=== PATIENT | female | born 1970 | race Caucasian/White ===

== ENCOUNTER 2021-03-03 05:25 | Emergency (ER) | payer OTHER ==
[2021-03-03 06:03] VITALS: BP 111/56; PULSE 67; TEMP 97.8; BMI 30.2
[2021-03-03] MEDS ORDERED: KETOROLAC TROMETHAMINE 30 MG/1 ML VIAL IVPUSH ONE (07:27)
[2021-03-03] MEDS ORDERED: KETOROLAC TROMETHAMINE 30 MG/1 ML VIAL ONE (08:02)
[2021-03-03 08:34] LABS: BASO % 0.6 % (0-2.0); EOS % 6.2 % (0-4.5); HEMATOCRIT 26.8 % (32.4-45.2); HEMOGLOBIN 8.2 GM/dL (10.7-15.3); LYMPH % 26.4 % (8-40); MCHC 30.7 g/dl (32.0-36.0); MEAN CELL VOLUME 59.2 fl (80-96); MEAN PLT VOLUME 8.4 fl (7.5-11.1); MONO % 13.1 % (3.8-10.2); NEUT % 53.7 % (42.8-82.8); PLATELET COUNT 180 10^3/uL (134-434); RBC 4.53 M/mm3 (3.60-5.2); RDW 19.5 % (11.6-15.6); WHITE BLOOD COUNT 4.6 K/mm3 (4.0-10.0)
[2021-03-03 08:36] LABS: MCH 18.2 pg (25.7-33.7)
[2021-03-03 08:53] LABS: EPI CELLS 7 /uL (0-25.1); HYALINE CASTS 4 /uL (0-3.1); URINE APPEARANCE CLOUDY; URINE BACTERIA >9,000 /uL (0-1359); URINE BILIRUBIN NEGATIVE (NEGATIVE); URINE COLOR YELLOW; URINE GLUCOSE (UA) NEGATIVE (NEGATIVE); URINE KETONE NEGATIVE (NEGATIVE); URINE LEUK ESTERASE 2+ (NEGATIVE); URINE NITRITE POSITIVE (NEGATIVE); URINE PROTEIN TRACE (NEGATIVE); URINE RBC 2134 /uL (0-23.9); URINE WBC 210 /uL (0-25.8)
[2021-03-03 08:54] LABS: HCG,QUALITATIVE URINE Negative
[2021-03-03 08:54] LABS: BLOOD UREA NITROGEN 8.5 mg/dL (7-18); CALCIUM 8.4 mg/dL (8.5-10.1)
[2021-03-03 08:55] LABS: ALBUMIN 3.8 g/dl (3.4-5.0)
[2021-03-03 08:58] LABS: CREATININE 0.6 mg/dL (0.55-1.3)
[2021-03-03 08:59] LABS: BILIRUBIN,TOTAL 0.6 mg/dL (0.2-1)
== END 2021-03-03 09:50 | disposition home or self-care (01) ==
LOC: JER 05:25
PROC: 3E0333Z Introduction of Anti-inflammatory into Peripheral Vein, Percutaneous Approach (ICD-10-PCS; principal; 2021-03-03)
DX: N30.01 Acute cystitis with hematuria (principal)
CPT/HCPCS: 36415; 74176-TC; 80053; 81003; 84703; 85025; 87086; 87186; 99284-25

== ENCOUNTER 2023-01-31 23:24 | Inpatient (IN) | payer OTHER ==
[2023-01-31 23:31] VITALS: BMI 33.0
[2023-02-01] MEDS ORDERED: METOCLOPRAMIDE HCL INJECTION 10 MG/2 ML VIAL IVPB ONE (00:06)
[2023-02-01] MEDS ORDERED: SODIUM CHLORIDE 0.9% 500 ML INFUS.BAG IV ONE (00:07)
[2023-02-01 00:31] LABS: HEMATOCRIT 38.7 % (32.4-45.2); MCH 28.2 pg (25.7-33.7); MCHC 33.7 g/dl (32.0-36.0); MEAN CELL VOLUME 83.7 fl (80-96); MEAN PLT VOLUME 8.3 fl (7.5-11.1); PLATELET COUNT 96 10^3/uL (134-434); RBC 4.62 M/mm3 (3.60-5.2); RDW 14.5 % (11.6-15.6); WHITE BLOOD COUNT 5.2 K/mm3 (4.0-10.0)
[2023-02-01 00:42] LABS: INR 1.05 (0.83-1.09); PROTHROMBIN TIME (PATIENT) 12.2 SEC (9.7-13.0)
[2023-02-01 00:44] LABS: ACTIVATED PTT 25.7 SECONDS (25.2-36.5)
[2023-02-01] MEDS ORDERED: METOCLOPRAMIDE HCL INJECTION 10 MG/2 ML VIAL ONE (00:46)
[2023-02-01 00:51] LABS: POTASSIUM 3.6 mmol/L (3.5-5.1)
[2023-02-01 00:53] LABS: ALBUMIN 3.5 g/dl (3.4-5.0); BLOOD UREA NITROGEN 16.8 mg/dL (7-18); CALCIUM 8.4 mg/dL (8.5-10.1)
[2023-02-01 00:56] LABS: CREATININE 0.7 mg/dL (0.55-1.3)
[2023-02-01 00:58] LABS: TOT PROT 6.8 g/dl (6.4-8.2)
[2023-02-01 01:14] LABS: ANISOCYTOSIS 2+; MACROCYTOSIS 0; OVALOCYTE 1+
[2023-02-01] MEDS ORDERED: ACETAMINOPHEN 1000 MG/100 ML BAG IVPB ONE (01:27)
[2023-02-01] MEDS ORDERED: PIPERACILLIN/TAZOB 4.5 GM 4.5 GM in DEXTROSE 5%-WATER 100 ML IVPB ONE (01:42)
[2023-02-01] MEDS ORDERED: ERYTHROMYCIN 0.5% OPHTHALMIC OINTMENT 3.5 GM TUBE OU STA (01:43)
[2023-02-01] MEDS ORDERED: PIPERACILLIN/TAZOB 4.5 GM 4.5 GM/100 ML BAG IVPB ONE (03:09)
[2023-02-01] MEDS ORDERED: ERYTHROMYCIN 0.5% OPHTHALMIC OINTMENT 3.5 GM TUBE ONE (03:09)
[2023-02-01 03:50] LABS: URINE APPEARANCE CLEAR; URINE COLOR YELLOW
[2023-02-01 03:51] LABS: URINE BILIRUBIN NEGATIVE (NEGATIVE); URINE GLUCOSE (UA) NEGATIVE (NEGATIVE); URINE KETONE TRACE (NEGATIVE); URINE LEUK ESTERASE 1+ (NEGATIVE); URINE NITRITE POSITIVE (NEGATIVE); URINE PROTEIN NEGATIVE (NEGATIVE)
[2023-02-01 03:52] LABS: EPI CELLS 7.4 /uL (0-25.1); HYALINE CASTS 0.43 /uL (0-3.1); URINE BACTERIA 21942.4 /uL (0-1359); URINE RBC 16.3 /uL (0-23.9); URINE WBC 223.4 /uL (0-25.8)
[2023-02-01 04:42] LABS: HEMATOCRIT 37.3 % (32.4-45.2); HEMOGLOBIN 12.7 GM/dL (10.7-15.3); MCH 28.4 pg (25.7-33.7); MCHC 34.1 g/dl (32.0-36.0); MEAN CELL VOLUME 83.2 fl (80-96); MEAN PLT VOLUME 8.3 fl (7.5-11.1); PLATELET COUNT 92 10^3/uL (134-434); RBC 4.48 M/mm3 (3.60-5.2); RDW 14.7 % (11.6-15.6); WHITE BLOOD COUNT 7.5 K/mm3 (4.0-10.0)
[2023-02-01 05:01] LABS: POTASSIUM 3.3 mmol/L (3.5-5.1)
[2023-02-01 05:04] LABS: ALBUMIN 3.3 g/dl (3.4-5.0); BLOOD UREA NITROGEN 10.7 mg/dL (7-18); MAGNESIUM 1.9 mg/dL (1.8-2.4)
[2023-02-01 05:07] LABS: CREATININE 0.6 mg/dL (0.55-1.3); PHOSPHOROUS 2.9 mg/dL (2.5-4.9)
[2023-02-01 05:08] LABS: BILIRUBIN,TOTAL 1.3 mg/dL (0.2-1); TOT PROT 6.4 g/dl (6.4-8.2)
[2023-02-01] MEDS: SODIUM CHLORIDE 1,000 ML IV SCH ×3 (05:25→23:26)
[2023-02-01 05:40] LABS: HIV INTERPRETATION NEGATIVE (NEGATIVE)
[2023-02-01] MEDS ORDERED: AMPICILLIN NA/SULBACTAM NA 3 GM in SODIUM CHLORIDE 100 ML IVPB SCH (09:00)
[2023-02-01] MEDS ORDERED: POTASSIUM CHLORIDE TABS 20 MEQ TABLET.ER (FP) PO ONE (10:00)
[2023-02-01] MEDS ORDERED: DOXYCYCLINE INJECTION 100 MG in DEXTROSE 5%-WATER 100 ML IVPB SCH ×2 (10:00)
[2023-02-01] MEDS: ERYTHROMYCIN 0.5% OPHTHALMIC OINTMENT 3.5 GM TUBE OD SCH ×4 (12:28→21:46)
[2023-02-01] MEDS: ONDANSETRON 4 MG/2 ML VIAL IVPUSH PRN (12:36)
[2023-02-01] MEDS: PIPERACILLIN/TAZOB 4.5 GM 4.5 GM in DEXTROSE 5%-WATER 100 ML IVPB SCH ×2 (12:37→18:09)
[2023-02-01] MEDS ORDERED: morphine SULFATE 4 MG/ML VIAL IVPUSH PRN (12:51)
[2023-02-02] MEDS: PIPERACILLIN/TAZOB 4.5 GM 4.5 GM in DEXTROSE 5%-WATER 100 ML IVPB SCH ×3 (01:20→17:29)
[2023-02-02] MEDS: SODIUM CHLORIDE 1,000 ML IV SCH (08:02)
[2023-02-02 10:09] LABS: BASO % 0.4 % (0-2.0); EOS % 2.1 % (0-4.5); HEMATOCRIT 36.4 % (32.4-45.2); LYMPH % 11.3 % (8-40); MCH 28.2 pg (25.7-33.7); MCHC 33.1 g/dl (32.0-36.0); MEAN CELL VOLUME 85.4 fl (80-96); MEAN PLT VOLUME 9.3 fl (7.5-11.1); MONO % 8.5 % (3.8-10.2); NEUT % 77.7 % (42.8-82.8); PLATELET COUNT 91 10^3/uL (134-434); RBC 4.27 M/mm3 (3.60-5.2); RDW 14.7 % (11.6-15.6); WHITE BLOOD COUNT 9.7 K/mm3 (4.0-10.0)
[2023-02-02] MEDS: ERYTHROMYCIN 0.5% OPHTHALMIC OINTMENT 3.5 GM TUBE OD SCH ×3 (10:14→17:32)
[2023-02-02 10:25] LABS: POTASSIUM 3.6 mmol/L (3.5-5.1)
[2023-02-02 10:31] LABS: CALCIUM 8.1 mg/dL (8.5-10.1)
[2023-02-02 10:32] LABS: BLOOD UREA NITROGEN 9.2 mg/dL (7-18)
[2023-02-02 10:34] LABS: CREATININE 0.5 mg/dL (0.55-1.3)
[2023-02-02 10:35] LABS: BILIRUBIN,TOTAL 0.7 mg/dL (0.2-1); TOT PROT 5.7 g/dl (6.4-8.2)
[2023-02-03] MEDS: ONDANSETRON 4 MG/2 ML VIAL IVPUSH PRN ×2 (00:04→10:23)
[2023-02-03] MEDS: PIPERACILLIN/TAZOB 4.5 GM 4.5 GM in DEXTROSE 5%-WATER 100 ML IVPB SCH ×2 (01:21→10:23)
[2023-02-03] MEDS: SODIUM CHLORIDE 1,000 ML IV SCH ×2 (04:05→22:59)
[2023-02-03 09:24] LABS: HEMATOCRIT 36.3 % (32.4-45.2); HEMOGLOBIN 12.3 GM/dL (10.7-15.3); MCH 28.3 pg (25.7-33.7); MCHC 33.9 g/dl (32.0-36.0); MEAN CELL VOLUME 83.4 fl (80-96); MEAN PLT VOLUME 9.5 fl (7.5-11.1); PLATELET COUNT 84 10^3/uL (134-434); RBC 4.36 M/mm3 (3.60-5.2); RDW 14.9 % (11.6-15.6); WHITE BLOOD COUNT 7.2 K/mm3 (4.0-10.0)
[2023-02-03 09:30] LABS: INR 1.04 (0.83-1.09); PROTHROMBIN TIME (PATIENT) 12.1 SEC (9.7-13.0)
[2023-02-03 09:43] LABS: POTASSIUM 3.6 mmol/L (3.5-5.1)
[2023-02-03 09:56] LABS: CALCIUM 7.9 mg/dL (8.5-10.1)
[2023-02-03 09:57] LABS: CREATININE 0.5 mg/dL (0.55-1.3)
[2023-02-03 09:59] LABS: TOT PROT 5.9 g/dl (6.4-8.2)
[2023-02-03 10:00] LABS: BILIRUBIN,TOTAL 0.7 mg/dL (0.2-1)
[2023-02-03] MEDS: ERYTHROMYCIN 0.5% OPHTHALMIC OINTMENT 3.5 GM TUBE OD SCH ×5 (10:24→22:53)
[2023-02-03 10:25] LABS: ANISOCYTOSIS 0; HELMET CELLS 0; HOWELL-JOLLY BODIES 0; MACROCYTOSIS 0; OVALOCYTE 0; ROULEAU 0; SICKELED CELLS 0; TARGET CELLS 0; TEAR DROP CELLS 0; TOXIC GRANULATION 0
[2023-02-03] MEDS: CEFAZOLIN SODIUM 2 GM in DEXTROSE 5%-WATER 100 ML IVPB SCH (18:29)
[2023-02-04] MEDS: CEFAZOLIN SODIUM 2 GM in DEXTROSE 5%-WATER 100 ML IVPB SCH ×3 (03:00→17:28)
[2023-02-04 09:30] LABS: HEMATOCRIT 36.7 % (32.4-45.2); HEMOGLOBIN 12.6 GM/dL (10.7-15.3); MCH 28.2 pg (25.7-33.7); MCHC 34.3 g/dl (32.0-36.0); MEAN CELL VOLUME 82.2 fl (80-96); MEAN PLT VOLUME 8.9 fl (7.5-11.1); PLATELET COUNT 95 10^3/uL (134-434); RBC 4.46 M/mm3 (3.60-5.2); RDW 14.7 % (11.6-15.6)
[2023-02-04] MEDS: ERYTHROMYCIN 0.5% OPHTHALMIC OINTMENT 3.5 GM TUBE OD SCH ×4 (09:48→22:22)
[2023-02-04] MEDS: SODIUM CHLORIDE 1,000 ML IV SCH (09:50)
[2023-02-04 09:59] LABS: POTASSIUM 3.4 mmol/L (3.5-5.1)
[2023-02-04 10:09] LABS: ALBUMIN 2.9 g/dl (3.4-5.0); BLOOD UREA NITROGEN 3.8 mg/dL (7-18); CALCIUM 8.1 mg/dL (8.5-10.1)
[2023-02-04 10:12] LABS: CREATININE 0.6 mg/dL (0.55-1.3)
[2023-02-04 10:13] LABS: BILIRUBIN,TOTAL 0.6 mg/dL (0.2-1)
[2023-02-04 10:14] LABS: TOT PROT 5.8 g/dl (6.4-8.2)
[2023-02-04 11:52] LABS: ANISOCYTOSIS 0; MACROCYTOSIS 0
[2023-02-05] MEDS: CEFAZOLIN SODIUM 2 GM in DEXTROSE 5%-WATER 100 ML IVPB SCH ×2 (01:07→09:02)
[2023-02-05] MEDS: SODIUM CHLORIDE 1,000 ML IV SCH (05:49)
[2023-02-05 06:54] VITALS: BP 122/60; PULSE 48; RESP 17; TEMP 98.1
[2023-02-05] MEDS: ERYTHROMYCIN 0.5% OPHTHALMIC OINTMENT 3.5 GM TUBE OD SCH (09:02)
[2023-02-05 11:38] LABS: BASO % 0.4 % (0-2.0); EOS % 2.6 % (0-4.5); HEMATOCRIT 36.4 % (32.4-45.2); HEMOGLOBIN 12.4 GM/dL (10.7-15.3); MCH 28.6 pg (25.7-33.7); MCHC 34.2 g/dl (32.0-36.0); MEAN CELL VOLUME 83.5 fl (80-96); MEAN PLT VOLUME 8.9 fl (7.5-11.1); MONO % 15.5 % (3.8-10.2); NEUT % 52.5 % (42.8-82.8); PLATELET COUNT 105 10^3/uL (134-434); RBC 4.35 M/mm3 (3.60-5.2); RDW 14.8 % (11.6-15.6); WHITE BLOOD COUNT 5.6 K/mm3 (4.0-10.0)
[2023-02-05 11:55] LABS: CHLORIDE 113 mmol/L (98-107); POTASSIUM 3.5 mmol/L (3.5-5.1); SODIUM 145 mmol/L (136-145)
[2023-02-05 11:57] LABS: ANION GAP 6 MMOL/L (8-16); CALCIUM 8.3 mg/dL (8.5-10.1); CO2 26 mmol/L (21-32); GLUCOSE,RANDOM 103 mg/dL (74-106); MAGNESIUM 1.7 mg/dL (1.8-2.4)
[2023-02-05 12:00] LABS: CREATININE 0.5 mg/dL (0.55-1.3); PHOSPHOROUS 2.6 mg/dL (2.5-4.9); SGPT/ALT 72 U/L (13-61)
[2023-02-05 12:01] LABS: SGOT/AST 21 U/L (15-37)
[2023-02-05 12:02] LABS: BILIRUBIN,TOTAL 0.3 mg/dL (0.2-1); TOT PROT 5.9 g/dl (6.4-8.2)
[2023-02-05 12:03] LABS: ALK PHOS 103 U/L (45-117)
[2023-02-05 12:07] LABS: BLOOD UREA NITROGEN 2.9 mg/dL (7-18)
[2023-02-05 12:14] LABS: ANISOCYTOSIS 0; MACROCYTOSIS 0
[2023-02-05] MEDS ORDERED: MAGNESIUM OXIDE 400 MG TABLET (FP) PO ONE (12:16)
[2023-02-05] MEDS ORDERED: POTASSIUM CHLORIDE TABS 20 MEQ TABLET.ER (FP) PO ONE ×2 (12:45→22:15)
== END 2023-02-05 01:30 | disposition home or self-care (01) | DRG 463 ==
LOC: JER 23:24 → JERBED 02-01 03:25 → J8W 02-01 06:57
PROVIDERS: ADMIT Internal Medicine; ATTEND Nurse Practitioner Acute Care
DX: N39.0 Urinary tract infection, site not specified (principal); R78.81 Bacteremia; D64.9 Anemia, unspecified; K57.90 Diverticulosis of intestine, part unspecified, without perforation or abscess without bleeding; R74.01 Elevation of levels of liver transaminase levels; B96.20 Unspecified Escherichia coli [E. coli] as the cause of diseases classified elsewhere; D69.6 Thrombocytopenia, unspecified
CPT/HCPCS: 0241U-QW; 36415; 71045-TC-FY; 74177-TC; 74181-TC; 76705-TC; 78226-TC; 80053; 81003; 82550; 82553; 82728; 83036; 83540; 83550; 83605; 83615; 83690; 83735; 84100; 84484; 85025; 85027; 85610; 85730; 86140; 86704; 86705; 86708; 86803; 87040; 87086; 87186; 87207; 87340; 87389; 87517; 87522; 87798; 93005; 93010; 99285-25; A9537; Q9967